=== PATIENT | female | born 2000 | race Caucasian/White ===

== ENCOUNTER 2025-07-18 20:57 | Emergency (ER) | payer OTHER ==
[~2025-07-18] VITALS: Ht 167.6 cm; Wt 64.1 kg
[2025-07-18 21:58] VITALS: TEMP 98.6
[2025-07-18] MEDS: ONDANSETRON 4MG/2ML VIAL IV ONE (22:12)
[2025-07-18] MEDS: KETOROLAC 30 MG/ML 1 ML VIAL IV ONE (22:12)
[2025-07-18 22:17] LABS: BASO # 0.1 10^3/uL (0.0-0.2); BASO % 0.6 % (0.0-1.0); EOS # 0.1 10^3/uL (0.0-0.5); EOS % 0.8 % (0.0-3.0); LYMPH # 2.6 10^3/uL (1.5-5.0); LYMPH % 29.2 % (24.0-44.0); MONO # 0.7 10^3/uL (0.0-0.8); MONO % 7.5 % (2.0-8.0); NEUTROPHILS # 5.5 10^3/uL (1.5-8.5); NEUTROPHILS % 61.8 % (36.0-66.0); PLATELET COUNT, AUTOMATED 215 10^3/uL (150-450)
[2025-07-18 22:50] LABS: ALT/SGPT < 9 U/L (7.0-40); AST/SGOT 16 U/L (<34)
[2025-07-18 23:33] LABS: HCG, SERUM QUALITATIVE NEGATIVE (NEGATIVE)
[2025-07-19 00:52] VITALS: BP 114/77; O2SAT 98
[2025-07-19] MEDS ORDERED: ONDA-282 PO (00:59)
[2025-07-19] MEDS ORDERED: PROT1TAB2 PO (00:59)
== END 2025-07-19 01:13 | disposition home or self-care (01) ==
LOC: M ED 20:57
DX: R10.11 Right upper quadrant pain (principal); Z88.1 Allergy status to other antibiotic agents; Z79.899 Other long term (current) drug therapy
CPT/HCPCS: 76705; 80047; 80076; 84703; 85025; 96374; 99284; J1885; J2405